=== PATIENT | female | born 1995 | race Caucasian/White ===

== ENCOUNTER 2021-10-31 10:50 | Day surgery (SDC) | payer BC, SELFPAY ==
[2021-10-31] MEDS ORDERED: Midazolam HCl 2 mg/2 ml Vial ONE (12:38)
[2021-10-31] MEDS ORDERED: fentaNYL Citrate/PF 100 MCG/2 ML SYRINGE ONE (12:38)
[2021-10-31] MEDS ORDERED: Bupivacaine/Epinephrine 0.25% 30 ML VIAL ONE (12:40)
[2021-10-31] MEDS ORDERED: Sodium Chloride 0.9% 100 ML ONE (12:51)
[2021-10-31] MEDS ORDERED: cefOXitin 2 GM VIAL ONE (12:51)
[2021-10-31] MEDS ORDERED: Rocuronium Bromide 10 MG/ML (10ML VIAL) ONE (13:09)
[2021-10-31] MEDS ORDERED: Esmolol 100 MG/10 ML VIAL ONE (13:09)
[2021-10-31] MEDS ORDERED: Lidocaine 1% MPF 2 ML VIAL ONE (13:09)
[2021-10-31] MEDS ORDERED: NEOSTIGMINE 3 MG/3 ML SYR 3 MG/3 ML SYRINGE ONE (13:09)
[2021-10-31] MEDS ORDERED: Dexamethasone 20 MG/5 ML VIAL ONE (13:09)
[2021-10-31] MEDS ORDERED: ePHEDrine 50 MG/ML VIAL ONE (13:09)
[2021-10-31] MEDS ORDERED: PROPOFOL 200 MG/20 ML VIAL ONE (13:09)
[2021-10-31] MEDS ORDERED: Glycopyrrolate 0.2 MG/ML 5 ML SYRINGE ONE (13:09)
[2021-10-31] MEDS ORDERED: Succinylcholine 200 MG/10 ml SYRINGE FS ONE (13:09)
[2021-10-31] MEDS ORDERED: Fentanyl 100 MCG/2 ML VIAL ONE (14:11)
[2021-10-31] MEDS ORDERED: Ondansetron PF 4 MG/2 ML Vial ONE (14:14)
== END 2021-10-31 15:25 | disposition home or self-care (01) ==
LOC: SDC 10:50
PROVIDERS: ATTEND Surgery
PROC: 0DTJ4ZZ Resection of Appendix, Percutaneous Endoscopic Approach (ICD-10-PCS; principal; 2021-10-31)
DX: K35.30 Acute appendicitis with localized peritonitis, without perforation or gangrene (principal); K38.8 Other specified diseases of appendix
CPT/HCPCS: 88304; A4649; C1776; J0694; J1100; J2250; J2405; J2704; J3010; J3490